=== PATIENT | male | born 1945 | race Caucasian/White ===

== ENCOUNTER 2016-09-03 14:59 | Emergency (ER) | payer MEDICARE, BC ==
[~2016-09-03] VITALS: Ht 182.9 cm; Wt 100.0 kg
[~2016-09-03 14:59] MED LIST: ASPIRIN ADULT L81 MG PO; BUPROPION150 M1 PO; CRESTOR40 MG PO; ETODOLAC200 MG PO; HYDREA500 MG PO; LISINOPRIL40 MG PO; METFORMIN500 MG PO; VALPROIC ACD250 M3 OR
[2016-09-03] MEDS ORDERED: KEFLEX500 M1 PO (15:52)
[2016-09-03 16:04] VITALS: BP 144/74
[2016-09-03] MEDS ORDERED: LODINE XL400 MG PO (16:10)
[2016-09-03] MEDS ORDERED: VALPROIC ACD250 M1 PO (16:10)
[2016-09-03] MEDS ORDERED: WELLBUTRIN SR150 MG PO (16:10)
[2016-09-03] MEDS ORDERED: ASPIRIN CHEWABL81 MG PO (16:11)
== END 2016-09-03 16:04 | disposition home or self-care (01) ==
LOC: ED 14:59
PROC: 0HQGXZZ Repair Left Hand Skin, External Approach (ICD-10-PCS; principal; 2016-09-03)
DX: S61.211A Laceration without foreign body of left index finger without damage to nail, initial encounter (principal); W26.0XXA Contact with knife, initial encounter; Y93.G3 Activity, cooking and baking; Y92.000 Kitchen of unspecified non-institutional (private) residence as the place of occurrence of the external cause

== ENCOUNTER 2020-10-23 13:16 | Emergency (ER) | payer OTHER, MEDICARE, BC ==
[~2020-10-23 13:16] MED LIST changes: +ASPIRIN CHEWABL81 MG PO; +KEFLEX500 M1 PO; +LODINE XL400 MG PO; +VALPROIC ACD250 M1 PO; +WELLBUTRIN SR150 MG PO
[2020-10-23] MEDS ORDERED: CYCLOBENZAPR5 MG PO (13:49)
[2020-10-23 14:47] VITALS: BP 166/71
== END 2020-10-23 14:48 | disposition home or self-care (01) | DRG 552 ==
LOC: ED 13:16
DX: M54.31 Sciatica, right side (principal); E11.9 Type 2 diabetes mellitus without complications; D75.1 Secondary polycythemia; F17.210 Nicotine dependence, cigarettes, uncomplicated; Z79.84 Long term (current) use of oral hypoglycemic drugs